=== PATIENT | male | born 1940 | race Caucasian/White ===

== ENCOUNTER 2017-03-15 17:45 | Inpatient (IN) | payer OTHER ==
[~2017-03-15] VITALS: Ht 180.3 cm; Wt 145.1 kg
--- NOTE | ~2017-03-15 | S ---
Formerly [facility] [place] [address] SURGICAL PATH RPT PROCEDURE Name: FAROOQ BLOOM Room #: 455-P [facility] IN M.R.#: [id number] Admission: 03/15/17 Date of : 44 Discharge: 03/18/17 Report #: [id number] Path Case #: [id number] PATHOLOGY REPORT COLLECTION DATE: 03/17/2017 RECEIVED DATE: 03/17/2017 SUBMITTING PHYS: Dr. Darinel Gomez OTHER PHYS: Dr. Fitz Gongora SPECIMEN(S) RECEIVED: A.Peripheral smear * * * * * * * * * * * * FINAL DIAGNOSIS: Peripheral blood with moderate normocytic normochromic anemia, severe thrombocytopenia and monocytosis. (please see comment) COMMENT: The peripheral blood shows moderate normocytic normochromic anemia with minimal anisopoikilocytosis including a few microcytic forms without schistocytes or morphologic evidence of a hemolytic process identified. These findings may suggest an anemia of chronic disease or possibly an iron deficiency anemia. An iron study to include serum iron, percent saturation, TIBC, and ferritin is suggested for a more definite classification of the etiology of the anemia. There is also severe thrombocytopenia with normal platelet morphology. Aggregates of platelets are not identified. The neutrophils show few hypolobated forms. There is also monocytosis noted. The presence of hypolobated neutrophils may be seen in a reactive process, however, the possibility of a myelodysplastic/myeloproliferative neoplasm such as a chronic myelomonocytic leukemia should be considered. Correlation with clinical findings to include presence of splenomegaly and persistent monocytosis for at least three months with all other reactive causes of monocytosis have been excluded. Other possible causes of thrombocytopenia may include failure of marrow production such as seen in marrow infiltration with tumor, infection or fibrosis, and marrow aplasia, as well as ineffective megakaryocytopoiesis such as seen in megaloblastic anemia, myelodysplasia, and alcohol suppression. Increased platelet destruction may also cause thrombocytopenia such as seen in immune thrombocytopenia (autoantibody-mediated: systemic lupus erythematosus, lymphomas, drugs, infections, idiopathic) and non-immune thrombocytopenia (DIC, TTP, and mechanical). Splenic sequestration (hypersplenism) may also cause thrombocytopenia. There are no aggregates of platelets to suggest spurious (EDTA-pseudothrombocytopenia). Please correlate clinically. [address] [address] SURGICAL PATH RPT PROCEDURE Name: FAROOQ BLOOM Room #: 455-P [facility] IN M.R.#: [id number] Admission: 03/15/17 Date of : 44 Discharge: 03/18/17 Report #: [id number] Path Case #: [id number] (LUCIE:mgr; 03/17/2017) PATHOLOGIST: Piedad Du M.D. REPORT ELECTRONICALLY SIGNED BY: Piedad Du M.D. DATE/TIME: 03/18/2017 21:15 * * * * * * * * * * * * MICROSCOPIC DESCRIPTION: CBC Data (03/17/17): WBC 6.3, RBC 3.85, hemoglobin 10.7, hematocrit 32.3, MCV 83.9, RDW 17.4%, platelet count 30,000. White blood cell count differential: 63% segs, 25% lymphs, 11% monos, 1% eos, 1% basos. Peripheral Blood: Red blood cells are normochromic with minimal anisopoikilocytosis including a few microcytic forms without schistocytes or morphologic evidence of a hemolytic process identified. Platelets are severely decreased with normal morphology. Aggregates of platelets are not identified. White blood cells are normal in number with predominance of mature segmented neutrophils. There are a few hypolobated neutrophils without circulating blasts or myeloid left shift identified. There is also monocytosis noted. The lymphocytes are mostly small and mature with few atypical reactive lymphocytes. CLINICAL HISTORY: The patient is a 76 year-old male whose peripheral smear is submitted for review at the request of Dr. Darinel Gomez. INITIAL CPT CODE(S): A; [place] Professional services performed by [employer] at [facility], [address] [place] [address]. Technical services performed by [employer] at [address] [place] [address], [address], [place] [address]. [employer] [address] [place] [address] PHONE: [phone] DIRECTOR: Dante Jackson M.D. * * * END OF REPORT * * *
--- NOTE | ~2017-03-15 | 2DMMODE ---
Formerly [facility] [address] [place] [address] 2 D/M-MODE ECHOCARDIOGRAM Name: FAROOQ BLOOM Room #: 455-P [facility] IN ..#: [id number] Admission: 03/15/17 Attend Phys: Riaz Gongora, Discharge: Date of : 44 Date of Service: 03/16/17 1234 Report #: [id number] THIS REPORT FOR: //name// APPROVED REPORT Study performed: 03/16/2017 10:33:31 EXAM: Comprehensive 2D, Doppler, and color-flow Echocardiogram Patient Location: In-Patient Room #: 455 Status: routine Other Information Study Quality: Adequate Indications Congestive Heart Failure Hx COPD, AFIB, MOBID OBESITY, SOA 2D Dimensions RVDd: 40.97 mm LVEF(%): 53.40 (>50%) IVSd: 14.61 (7-11mm) LVOT Diam: 23.20 (18-24mm) LVDd: 47.62 mm PWd: 13.84 (7-11mm) Ascending Ao: 36.64 (22-36mm) LVDs: 34.51 (25-40mm) Aortic Root: 36.13 mm Thomason's LVEF: 53.40 % Volumes Left Atrial Volume (Systole) Single Plane 4CH: 180.15 mL Single Plane 2CH: 92.49 mL LA ESV Index: 55.00 mL/m2 Aortic Valve AoV Peak Rommel.: 1.11 m/s AO Peak Gr.: 6.06 mmHg LVOT Max P.35 mmHg LVOT Max V: 0.91 m/s KARLI Vmax: 3.48 cm2 Mitral Valve MV Decel. Time: 189.35 ms MV E Max Rommel.: 0.97 m/s IVRT: 69.20 ms Pulmonary Valve Formerly [facility] [place] [address] 2 D/M-MODE ECHOCARDIOGRAM Name: FAROOQ BLOOM Room #: 455-P ADM IN M.R.#: [id number] Admission: 03/15/17 Attend Phys: Riaz Gongora, Discharge: Date of : 44 Date of Service: 03/16/17 1234 Report #: [id number] PV Peak Rommel.: 1.22 m/s PV Peak Gr.: 6.06 mmHg Tricuspid Valve TR Peak Rommel.: 2.76 m/s RAP Estimate: 5.00 mmHg TR Peak Gr.: 30.54 mmHg PA Pressure: 36.00 mmHg Left Ventricle The left ventricle is normal size. Moderate concentric left ventricular hypertrophy. The left ventricular systolic function is normal. The left ventricular ejection fraction is within the normal range. LVEF is 50-55%. This study is not technically sufficient to allow evaluation of the LV diastolic function due to atrial fibrillation. Right Ventricle Right ventricle is at the upper limits of normal. The right ventricular systolic function is normal. Atria Left atrium is severely dilated. Right atrium is severely dilated. Aortic Valve The aortic valve is normal in structure. Mild aortic regurgitation. There is no aortic valvular stenosis. Mitral Valve Mitral valve leaflets are thickened. Moderate mitral regurgitation. No evidence of mitral valve stenosis. Tricuspid Valve The tricuspid valve is normal in structure. There is trace tricuspid regurgitation. The right atrial pressure is estimated at 5 mmHg. There is mild pulmonary hypertension with an estimated PAP of 36 mmHg. Pulmonic Valve The pulmonary valve is normal in structure. Trace pulmonic regurgitation. Great Vessels The aortic root is normal in size. The ascending aorta is normal in size. IVC is normal in size and collapses >50% with inspiration. Formerly [facility] [address] [place] [address] 2 D/M-MODE ECHOCARDIOGRAM Name: FAROOQ BLOOM Room #: 455-P [facility] IN M.R.#: [id number] Admission: 03/15/17 Attend Phys: Riaz Gongora, Discharge: Date of : 44 Date of Service: 03/16/17 1234 Report #: [id number] Pericardium Cannot rual out small posterior pericardial effusion. <Conclusion> The left ventricle is normal size. LVEF is 50-55%. Left atrium is severely dilated. Right atrium is severely dilated. The aortic valve is normal in structure. Mild aortic regurgitation. Mitral valve leaflets are thickened. Mild to moderate mitral regurgitation. The tricuspid valve is normal in structure. There is trace tricuspid regurgitation. The right atrial pressure is estimated at 5 mmHg. There is mild pulmonary hypertension with an estimated PAP of 36 mmHg. The pulmonary valve is normal in structure. Trace pulmonic regurgitation. <ELECTRONICALLY SIGNED> By: Frank Montanez MD 03/16/17 1234 1234 1234 Frank Montanez MD /INF
[2017-03-15 20:22] VITALS: BP 135/75
[2017-03-15] MEDS ORDERED: METOPROLOL SUC100 MG PO (20:48)
[2017-03-15] MEDS ORDERED: CARDIZEM CD120 MG PO (20:50)
[2017-03-15] MEDS ORDERED: XARELTO20 MG PO (20:52)
[2017-03-15] MEDS ORDERED: LASIX 40 MG TAB40 M2 PO (20:54)
[2017-03-15] MEDS ORDERED: KLOR-CON 10 ER10 MEQ PO (20:56)
[2017-03-15] MEDS ORDERED: OMEPRAZOLE 20 M20 M1 PO (20:57)
[2017-03-15 20:58] LABS: ALBUMIN 3.4 g/dL (3.4-5.0); CALCIUM 8.5 mg/dL (8.5-10.1); CREATININE 1.8 mg/dL (0.7-1.3); MAGNESIUM 1.6 mg/dL (1.8-2.4); POTASSIUM 3.7 mmol/L (3.5-5.1); TOTAL BILIRUBIN 1.5 mg/dL (<0.1-1.0); TOTAL PROTEIN 8.2 g/dL (6.4-8.2); TROPONIN-I < 0.04 ng/mL (<0.04-0.07)
[2017-03-15] MEDS ORDERED: LEVOTHYROXIN0.088 MG PO (20:59)
[2017-03-15 21:01] LABS: INR 1.2; PROTIME 11.8 Seconds (9.3-11.4)
[2017-03-15] MEDS ORDERED: ULTRACET TABLET1 TAB PO (21:05)
[2017-03-15 21:11] LABS: ABG SAMPLE TYPE ARTERIAL; BE(vivo) 0.6 mmol/L (-2 to +3); HCO3 24.3 mmol/L (22.0-26.0); O2(CT) 16.2 mL/dL (15.0-23.0); O2Hb 93.4 % (92.0-98.0); PCO2 35.8 mmHg (35.0-45.0); PO2 73.6 mmHg (80.0-100.0); STICK SITE L.RADIAL; pH 7.449 (7.360-7.450); sO2 95.5 % (92.0-98.0); tCO2 25.4 mmol/L (24.0-30.0)
[2017-03-15] MEDS ORDERED: PROAIR HFA8.5 GM PO (21:11)
[2017-03-16 00:06] VITALS: BP 105/38
[2017-03-16 03:28] VITALS: BP 138/58
[2017-03-16 07:15] LABS: EOSINOPHILS 0.2 % (0.0-3.0); HEMOGLOBIN 11.3 gm/dL (14.0-18.0)
[2017-03-16 07:18] LABS: ABSOLUTE NEUTROPHILS 6.5 thou/uL (1.4-8.2); BASOPHILS 0.4 % (0.0-2.0); HEMATOCRIT 33.9 % (42.0-52.0); LYMPHOCYTES 16.9 % (24.0-44.0); MCHC 33.3 g/dL (28.0-37.0); MCV 83.9 fL (80.0-100.0); MONOCYTES 9.4 % (1.0-8.0); POLYS 73.1 % (36.0-66.0); RBC 4.04 mil/uL (4.50-6.00); RDW 17.3 % (10.5-14.5); WBC 8.9 thou/uL (4.0-11.0)
[2017-03-16 07:26] LABS: MANUAL DIFF NO
[2017-03-16 07:28] LABS: CALCIUM 8.5 mg/dL (8.5-10.1); CREATININE 1.5 mg/dL (0.7-1.3); POTASSIUM 3.6 mmol/L (3.5-5.1)
[2017-03-16 07:39] VITALS: BP 134/63
[2017-03-16 07:53] LABS: PLATELET COUNT 8 thou/uL (150-400)
[2017-03-16 07:54] LABS: ANISOCYTOSIS 1+; POLYCHROMASIA OCCASIONAL
[2017-03-16 11:29] VITALS: BP 122/85
[2017-03-16 15:26] VITALS: BP 111/57; BP 127/52
[2017-03-16 19:43] VITALS: BP 123/76
[2017-03-16 19:44] LABS: % SATURATION 9 % (20-39); IRON 21 ug/dL (65-175); TIBC 241 ug/dL (250-450); UIBC 220 ug/dL
[2017-03-16 21:47] LABS: RDW 17.3 % (10.5-14.5)
[2017-03-16 21:48] LABS: HEMATOCRIT 32.3 % (42.0-52.0); HEMOGLOBIN 10.7 gm/dL (14.0-18.0); MCH 27.7 pg (26.0-34.0); MCHC 33.2 g/dL (28.0-37.0); MCV 83.6 fL (80.0-100.0); RBC 3.87 mil/uL (4.50-6.00); WBC 6.7 thou/uL (4.0-11.0)
[2017-03-17 05:20] VITALS: BP 120/65
[2017-03-17 06:29] LABS: BASOPHILS 0.4 % (0.0-2.0); HEMATOCRIT 32.3 % (42.0-52.0); MCHC 33.3 g/dL (28.0-37.0)
[2017-03-17 06:31] LABS: EOSINOPHILS 0.5 % (0.0-3.0); HEMOGLOBIN 10.7 gm/dL (14.0-18.0); MCH 27.9 pg (26.0-34.0); MCV 83.9 fL (80.0-100.0); MONOCYTES 11.4 % (1.0-8.0); PLATELET COUNT 30 thou/uL (150-400); POLYS 62.7 % (36.0-66.0); RBC 3.85 mil/uL (4.50-6.00); RDW 17.4 % (10.5-14.5); WBC 6.3 thou/uL (4.0-11.0)
[2017-03-17 06:33] LABS: MANUAL DIFF NO
[2017-03-17 06:45] LABS: CALCIUM 8.4 mg/dL (8.5-10.1); CREATININE 1.4 mg/dL (0.7-1.3); POTASSIUM 3.5 mmol/L (3.5-5.1)
[2017-03-17 07:17] VITALS: BP 136/71
[2017-03-17 07:57] LABS: ABG SAMPLE TYPE ARTERIAL; BE(vivo) 3.4 mmol/L (-2 to +3); HCO3 26.5 mmol/L (22.0-26.0); LACTATE 1.44 mmol/L (0.5-2.0); O2(CT) 15.1 mL/dL (15.0-23.0); O2Hb 91.4 % (92.0-98.0); PCO2 34.7 mmHg (35.0-45.0); PO2 64.8 mmHg (80.0-100.0); sO2 94.4 % (92.0-98.0); tCO2 27.5 mmol/L (24.0-30.0)
[2017-03-17 07:58] LABS: STICK SITE L.RADIAL
[2017-03-17 12:09] VITALS: BP 138/91
[2017-03-17 13:08] LABS: IgA 176 mg/dL (61-437); IgG 1288 mg/dL (700-1600); IgM 200 mg/dL (15-143)
[2017-03-17 16:18] VITALS: BP 137/83
[2017-03-17 19:15] VITALS: BP 125/80
[2017-03-18 04:04] VITALS: BP 150/98
[2017-03-18 05:42] LABS: ABSOLUTE NEUTROPHILS 6.5 thou/uL (1.4-8.2); HEMOGLOBIN 11.4 gm/dL (14.0-18.0); LYMPHOCYTES 14.1 % (24.0-44.0); MCH 27.9 pg (26.0-34.0); MCHC 33.6 g/dL (28.0-37.0); MCV 83.2 fL (80.0-100.0); MONOCYTES 3.7 % (1.0-8.0); PLATELET COUNT 67 thou/uL (150-400); POLYS 82.2 % (36.0-66.0); RBC 4.09 mil/uL (4.50-6.00); RDW 17.6 % (10.5-14.5); WBC 7.9 thou/uL (4.0-11.0)
[2017-03-18 05:46] LABS: MANUAL DIFF NO
[2017-03-18 05:59] LABS: CALCIUM 8.6 mg/dL (8.5-10.1); CREATININE 1.6 mg/dL (0.7-1.3); POTASSIUM 4.1 mmol/L (3.5-5.1)
[2017-03-18 07:58] VITALS: BP 139/78
[2017-03-18 11:35] VITALS: BP 126/86
[2017-03-18 15:29] VITALS: BP 147/73
[2017-03-18 16:08] VITALS: BP 147/73
[2017-03-18 16:14] VITALS: BP 147/73
== END 2017-03-18 16:55 | disposition home health service (06) | DRG 291 ==
LOC: 4W 17:45
PROVIDERS: Family Medicine; Internal Medicine Geriatric Medicine; Internal Medicine Hematology & Oncology; Internal Medicine Pulmonary Disease; Nurse Practitioner Family
PROC: 30233R1 Transfusion of Nonautologous Platelets into Peripheral Vein, Percutaneous Approach (ICD-10-PCS; principal; 2017-03-16)
DX: I13.0 Hypertensive heart and chronic kidney disease with heart failure and stage 1 through stage 4 chronic kidney disease, or unspecified chronic kidney disease (principal); I50.33 Acute on chronic diastolic (congestive) heart failure; J96.01 Acute respiratory failure with hypoxia; L03.119 Cellulitis of unspecified part of limb; J44.1 Chronic obstructive pulmonary disease with (acute) exacerbation; E87.3 Alkalosis; Z68.41 Body mass index [BMI] 40.0-44.9, adult; I87.2 Venous insufficiency (chronic) (peripheral); D69.6 Thrombocytopenia, unspecified; E03.9 Hypothyroidism, unspecified; K21.9 Gastro-esophageal reflux disease without esophagitis; E66.01 Morbid (severe) obesity due to excess calories; Z60.2 Problems related to living alone; I48.2 Chronic atrial fibrillation; D64.9 Anemia, unspecified; D50.8 Other iron deficiency anemias; S90.921A Unspecified superficial injury of right foot, initial encounter; N18.9 Chronic kidney disease, unspecified; D75.9 Disease of blood and blood-forming organs, unspecified; M25.871 Other specified joint disorders, right ankle and foot; I87.009 Postthrombotic syndrome without complications of unspecified extremity; Z90.49 Acquired absence of other specified parts of digestive tract; Z95.5 Presence of coronary angioplasty implant and graft; Z79.01 Long term (current) use of anticoagulants; Z79.899 Other long term (current) drug therapy; Z87.891 Personal history of nicotine dependence; Z86.73 Personal history of transient ischemic attack (TIA), and cerebral infarction without residual deficits
CPT/HCPCS: 10045

== ENCOUNTER 2020-03-14 14:42 | Inpatient (IN) | payer OTHER ==
[~2020-03-14] VITALS: Ht 180.3 cm; Wt 179.3 kg
[~2020-03-14 14:42] MED LIST: CARDIZEM CD120 MG PO; KLOR-CON 10 ER10 MEQ PO; LASIX 40 MG TAB40 M2 PO; LEVOTHYROXIN0.088 MG PO; METOPROLOL SUC100 MG PO; OMEPRAZOLE 20 M20 M1 PO; PROAIR HFA8.5 GM PO; ULTRACET TABLET1 TAB PO; XARELTO20 MG PO
--- NOTE | 2020-03-14 16:06 | NUR ---
REC REPORT FROM NOVEMBER, RN AT [facility], REC PT FROM AMBULANCE. PT IS A&0X4, PT AMB W/WALKER, IN PAIN DUE BLE CELLULITIS, BLE WRAPPED FOR LYMPHADEMA, WEEPING PER REPORT. WILL TAKE PHOTOGRAPH WHEN ABLE TO. WEARS 02 AT HOME 2-4L NEEDED. ON 2L HERE. SEE SEPARATE INTERVENTION FOR ASSESSMENT. CARDIAC MONITORED.
[2020-03-14] MEDS ORDERED: LORCET 5-325 M1 EACH PO (16:23)
[2020-03-14 17:10] LABS: HEMATOCRIT 32.9 % (42.0-52.0); HEMOGLOBIN 10.6 gm/dL (14.0-18.0); MCH 27.6 pg (26.0-34.0); MCHC 32.1 g/dL (28.0-37.0); MCV 85.9 fL (80.0-100.0); RBC 3.83 mil/uL (4.50-6.00); RDW 18.3 % (10.5-14.5); WBC 17.6 thou/uL (4.0-11.0)
[2020-03-14 17:17] LABS: CALCIUM 8.4 mg/dL (8.5-10.1); CREATININE 8.3 mg/dL (0.7-1.3); POTASSIUM 4.1 mmol/L (3.5-5.1)
[2020-03-14 17:22] LABS: PHOSPHORUS 8.3 mg/dL (2.5-4.9)
--- NOTE | 2020-03-14 17:50 | NUR ---
NURSING: CALL DR. JOSIAH RAZO WITH RESULTS TONIGHT ONCE DIAGNOSTICS/ORDERS COMPLETE
[2020-03-14 20:20] VITALS: BP 92/52
[2020-03-15 00:49] VITALS: BP 88/44
--- NOTE | 2020-03-15 03:31 | NUR ---
ASSUMED PT CARE AT 1900. PT IS ALERT AND ORIENTED. NO SIGN OF DISTRESS NOTED IN PT. PT IS STABLE. BLE SWELLING AND CELLULITIS NOTED. PT VERBALIZES PAIN. PAIN MED ADMINISTERED TO PT. DR RAZO NOTIFIED ON RESULT OF RENAL ULTRASOUND AND LAB RESULTS. PT IS STABLE. FALL PRECAUTION IN PLACE. ASSESSMENT COMPLETED AND DOCUMENTED. SCHEDULED MEDS ADMINISTERED TO PT. CONTINUE TO MONITOR PT. NO FURTHER NEEDS AT THIS TIME
[2020-03-15 05:45] LABS: HEMATOCRIT 30.4 % (42.0-52.0); MCH 28.2 pg (26.0-34.0); MCHC 32.8 g/dL (28.0-37.0); RBC 3.54 mil/uL (4.50-6.00); RDW 18.2 % (10.5-14.5); WBC 14.3 thou/uL (4.0-11.0)
[2020-03-15 06:26] LABS: ALBUMIN 2.7 g/dL (3.4-5.0); CALCIUM 7.8 mg/dL (8.5-10.1); PHOSPHORUS 8.7 mg/dL (2.5-4.9); POTASSIUM 3.8 mmol/L (3.5-5.1)
[2020-03-15 07:29] VITALS: BP 79/49
--- NOTE | 2020-03-15 08:35 | NUR ---
ASSUMED CARE OF PT AT SHIFT CHANGE, STATES HE ONLY GOT AN HOUR OR TWO OF SLEEP. WILL TAKE WOUND PICS TODAY, B/P'S LOW THIS A.M. AND AFIB, CHRONIC, LOW TEENS, NOW HAS IVF RUNNING YET ARM NOT WRAPPED IN A MANNER TO KEEP IVF RUNNING . WILL WRAP WITH KERLIX AND COBAN. PT ASKING FOR ALL HOME MEDS. HAD COMM W/PHYSICIAN AFTER DISCHARGE ON MED REC BEING COMPLETED. SEE SEPARATE INTERVENTIONS FOR ASSESSMENTS. ENCOURAGED PT TO USE CALL LIGHT FOR ANY NEEDS
--- NOTE | 2020-03-15 10:48 | HC ---
[place] [address] CONSULTATION Name: FAROOQ BLOOM Room #: 215-P ADM IN M.R.#: [id number] Admission: 03/14/20 Attend Phys: Kenny Pham MD Discharge: Date of : 44 Report #: [id number] THIS REPORT FOR: cc: [facility] - Family physician unknown [facility] - Family physician unknown Simone Cristina MD ~ CC: [facility] unknown Kenny Pham DATE OF SERVICE: 03/15/2020 INFECTIOUS DISEASE CONSULTATION ATTENDING PHYSICIAN: Dr. Pham. REASON FOR EVALUATION: Bilateral lower extremity inflammatory eruption, likely a component of skin and soft tissue infection more pronounced on the right in a patient with longstanding venous stasis insufficiency and lymphedema. HISTORY OF PRESENT ILLNESS: Chart reviewed, patient examined. This is a 79-year-old with fairly extensive medical history who apparently has been on hospice; however, noted perhaps in the last 2 or 3 days prior to his admission increasing pain and discomfort associated with lower extremities, in particularly the right. He has ongoing weeping and he is generally swollen most of the time. It is not clear that he had any fevers or chills. He states his appetite has been diminished, although not related to nausea more, just loss of the appetite. Had been initiated on therapy as an outpatient with Augmentin without benefit. On evaluation, he was found to have elevated white count 17.6. He was empirically started on vancomycin, adjusted for his renal insufficiency. He is maintained on supplemental oxygen at 3 liters normally, states he is on 2 liters at home. ALLERGIES: None known. MEDICATIONS: As noted above, vancomycin, diltiazem CD, levothyroxine. PAST MEDICAL HISTORY: As noted above for COPD, O2 requiring, history of atrial fibrillation, on chronic anticoagulation, has cardiomyopathy, history of congestive heart failure, lower extremity venous stasis insufficiency with dermatitis. He has wounds as well. He is morbidly obese. SOCIAL HISTORY: Former smoker. No ethanol. No illicit drug use. FAMILY HISTORY: Noncontributory. REVIEW OF SYSTEMS: Otherwise unremarkable 10-point review of systems. [address] [place] [address] CONSULTATION Name: FAROOQ BLOOM Room #: 215-P ADM IN M.R.#: [id number] Admission: 03/14/20 Attend Phys: Kenny Pham MD Discharge: Date of : 44 Report #: [id number] PHYSICAL EXAMINATION: GENERAL: Chronically ill appearing, suspect undernourished, although he is obese. Speech is somewhat difficult to understand, although he appears to be tracking. He is afebrile. VITAL SIGNS: Temperature 98.1, pulse 108, respirations 21, blood pressure is 88/42. SKIN: Warm, dry. HEENT AND NECK: Has got a thick neck, is supple. Normocephalic. Extraocular muscles intact. LUNGS: Diminished breath sounds overall. There are some crackles at the bases anteriorly. HEART: Regular with some ectopy. ABDOMEN: Obese. There are no overt peritoneal signs. Generally firm. EXTREMITIES: Bilateral lower extremities have marked edema with moderate inflammation. There is evidence of weeping and drainage. It is not exquisitely tender to touch, involves most of the limb below the knee. GENITOURINARY AND RECTAL: Deferred. LABORATORY DATA: White count initially 17.6, repeat this morning was 14.3; H and H 10.0 and 30.4; platelets of 209. Electrolytes: Sodium 127, potassium 3.8, chloride 90, bicarbonate of 17, anion gap of 20, BUN and creatinine 140 and 9.0, glucose of 97. Albumin of 2.7. Estimated GFR of 6. Renal ultrasound, limited, although no overt ____. ASSESSMENT: Bilateral lower extremity inflammatory eruption. Certainly, it appears to be multifactorial given the recent change in the symptomology and appearance. I suspect at least on the right side there is skin and soft tissue infection with cellulitis. Vancomycin should give us reasonable coverage, Staph and strep in particular, dose to be based on his renal function. Vancomycin should be on board for the next 24 hours. We will see how he does. He will need elevation and compression as allowed. <ELECTRONICALLY SIGNED> By: Simone Cristina MD 03/15/20 1048 [id number] Simone Cristina MD /nt
[2020-03-15 11:21] VITALS: BP 89/53
[2020-03-15 14:42] LABS: URINE BILIRUBIN NEGATIVE (Negative); URINE BLOOD TRACE (Negative); URINE CLARITY CLEAR; URINE COLOR YELLOW; URINE GLUCOSE-RANDOM* NEGATIVE (Negative); URINE KETONES NEGATIVE (Negative); URINE LEUKOCYTES NEGATIVE (Negative); URINE NITRITE NEGATIVE (Negative); URINE PROTEIN (DIPSTICK) TRACE (Negative); URINE SPECIFIC GRAVITY 1.025 (1.005-1.035); URINE UROBILINOGEN 0.2 E.U./dl (0.2-1.0)
[2020-03-15 16:34] VITALS: BP 91/41
[2020-03-15 18:49] VITALS: BP 87/57
[2020-03-16 05:25] LABS: ALBUMIN 2.4 g/dL (3.4-5.0); CALCIUM 7.3 mg/dL (8.5-10.1); CREATININE 8.7 mg/dL (0.7-1.3); POTASSIUM 4.2 mmol/L (3.5-5.1); TOTAL BILIRUBIN 0.4 mg/dL (0.2-1.0); TOTAL PROTEIN 7.4 g/dL (6.4-8.2)
[2020-03-16 05:30] VITALS: BP 74/33
[2020-03-16 06:07] LABS: HEMATOCRIT 29.6 % (42.0-52.0); HEMOGLOBIN 9.7 gm/dL (14.0-18.0); MCHC 32.7 g/dL (28.0-37.0); MCV 85.5 fL (80.0-100.0); PLATELET COUNT 233 thou/uL (150-400); RBC 3.46 mil/uL (4.50-6.00); RDW 18.7 % (10.5-14.5); WBC 16.8 thou/uL (4.0-11.0)
--- NOTE | 2020-03-16 06:44 | NUR ---
PATIENTS CARES WERE ASSUMED AT SHIFT CHANGE. PATIENT WAS ASSESED AND MEDS ERE PASSED PER ORDERS. PATIENT DOES C/O CHRONIC PAIN. PATIENT NOT ENGAGING OR VERBAL AT THIS TIME. PATIENT SPENT THIS SHIFT MOANING. A DOSE OF PAIN MEDICATION WAS GIVEN FOR PAIN RTED 05/08 HOWEVER ON REASSESSMENT NOT MUCH CHANGE. ROUNDS DONE HOURLY. THE BED IS IN A LOW AND LOCKED POSITION
[2020-03-16 08:00] VITALS: BP 77/45
[2020-03-16 10:12] LABS: ABSOLUTE NEUTROPHILS 15.1 thou/uL (1.4-8.2); METAMYELOCYTES 1 %
[2020-03-16 10:13] LABS: ANISOCYTOSIS 2+; MICROCYTES 1+
[2020-03-16 12:00] VITALS: BP 82/42
--- NOTE | 2020-03-16 14:20 | HC ---
[facility] [place] [address] CONSULTATION Name: FAROOQ BLOOM Room #: 215-P ADM IN M.R.#: [id number] Admission: 03/14/20 Attend Phys: Kenny Pham MD Discharge: Date of : 44 Report #: [id number] THIS REPORT FOR: cc: FAM - Family physician unknown FAM - Family physician unknown John Johnson MD ~ CC: [facility] unknown Kenny Pham DATE OF SERVICE: 03/14/2020 NEPHROLOGY CONSULTATION REASON FOR CONSULTATION: Acute renal failure. HISTORY OF PRESENT ILLNESS: This is a 79-year-old male who lives alone and has some hospice services. He presented to the [facility] Emergency Room earlier this morning. He was found to have changes of renal failure and those labs will be noted below. He was transferred here to [facility] for additional care. The patient is not a very good historian. He knows that he has some underlying COPD. He has a history of coronary artery disease with prior ME and coronary artery bypass graft surgery 14 years ago. He has chronic lymphedema of both lower extremities. He states that his edema has been worse over the past week or 2 in spite of his many medications. He also had erythema of the legs and some drainage. He is unaware of fevers. Because of the pain he presented to the [facility] Emergency Room earlier today. He was mildly hypotensive at that location. Blood pressure initially was recorded as 92/51 with a heart rate of 102. He was given some IV fluids, but I am not quite able to tell from what they sent how much volume he received. Labs were drawn and his creatinine was 8.49, sodium 128, bicarb 18. He was transferred here for additional care for his renal failure. In addition, he was afebrile at that time with a temperature of 36.6 degrees centigrade. His white count was elevated at 20.19, hemoglobin is 10.8, platelets 222,000. Differential on the white count showed 86% neutrophils, 9% lymphs, 3% monocytes. The patient states his urine output has been going down over the past few days. He claims he has no trouble passing urine. He has no sensation of retained urine. He states he spends most of his time in a chair with his legs in a dependent position. Apparently he does get up to make some of his meals and has been doing that. He is unaware of what his intake has been. He claims he is taking his medications. He is unaware of fevers, chills or sweats. When I asked about being on hospice, but coming to the Emergency Room and then transferring hospital he is not really able to answer the questions asked about those specifics. PAST MEDICAL HISTORY: Coronary artery disease with prior bypass and an ME [address] [address] CONSULTATION Name: FAROOQ BLOOM Room #: 215-P ADM IN M.R.#: [id number] Admission: 03/14/20 Attend Phys: Kenny Pham MD Discharge: Date of : 42 Report #: [id number] years ago, which would put that in about 2005. He has longstanding hypertension. He has his chronic lymphedema. He has hypothyroidism and is on replacement for that. He is morbidly obese. He has chronic atrial fibrillation and has been on Xarelto. He reports no recent bleeding. I would note that he also had a previous episode of acute kidney injury and was admitted earlier this year to [facility] where he was cared for by a couple of my practice partners. He underwent some acute dialysis because of hyperkalemia and metabolic acidosis. He really does not remember any of that. MEDICATIONS: On admission include lisinopril 20 mg daily, Cartia 300 mg daily, metoprolol 50 mg twice daily, torsemide 40 mg twice daily, spironolactone 25 mg once daily, potassium 10 mEq twice daily, Augmentin as an antibiotic, folic acid 1 mg daily, hydrocodone p.r.n., levothyroxine 0.088 mg daily, omeprazole 20 mg daily, Xarelto 20 mg daily. ALLERGIES: No known medical allergies. FAMILY HISTORY: Noncontributory. SOCIAL HISTORY: The patient lives alone. He says the hospice nurses come in couple of times a week. Otherwise, he struggles to get his own meals. He is poorly ambulatory. He does sleep in a bed he states more often than not, although we will also sleep in his chair with his legs down. He has chronic dyspnea with any exertion. Denies chest pain at this time. Unaware of cough or fever. Appetite has been diminished. Urine output is a bit down. He has had increasing pain in his lower extremities as noted above. PHYSICAL EXAMINATION: GENERAL: Chronically ill-appearing male. He is awake and responsive, although somewhat of a poor historian. I saw him just after arriving and we were waiting for a blood pressure There is one on the board listed as 105/52, heart rate is 108 and irregular. HEENT: Shows pupils are equal and reactive. Sclerae nonicteric. Oral mucosa is dry. NECK: Veins are not distended, but his neck is very large. Neck is supple. CHEST: Shows a few basilar rales posteriorly, faint wheeze a couple of other areas. No rhonchi. He is moving air actually fairly well. HEART: Has an irregularly irregular tachycardia. ABDOMEN: Obese, protuberant. Bowel sounds are present. Impossible to palpate any organomegaly or masses. Impossible to tell if the bladder is enlarged. EXTREMITIES: Show no upper extremity edema in fact if looking just at the upper extremities you would say he was a bit on the hypovolemic side. Both lower extremities are massively edematous. The left leg is wrapped, that appears to be 2 or 3+ edematous. The right leg is 4+ edematous with a segura red erythema [facility] [address] [place] [address] CONSULTATION Name: FAROOQ BLOOM Room #: 215-P ADM IN .R.#: [id number] Admission: 03/14/20 Attend Phys: Kenny Pham MD Discharge: Date of : 42 Report #: [id number] and several areas of skin breakdown, so obviously very tender. LABORATORY DATA: From [facility], white count 20.19, hemoglobin 10.8, hematocrit 32.6, MCV of 83.4, platelets 222,000. Differential is as noted above. Sodium 128, potassium 4.3, chloride 92, bicarb 18, BUN 125, creatinine 8.49, calcium 8.7, AST 34, ALT 19, alkaline phosphatase 85, total protein 8.9, albumin 3.2. ASSESSMENT: 1. Acute kidney injury on top of what is probably chronic kidney disease. This is not his first episode. As previously stated, he had another episode. That actually required acute dialysis while at [facility]. At this point, I do not have the records to verify what his creatinine level got down to. The patient does not remember any mention of what his kidney function is at his best. He was hypotensive at [facility]. He got some IV fluids. Blood pressure is better now. He has a mixed picture on exam of massive lymphedema, but the torso and arms would suggest he might well be somewhat volume deplete. At this point, we will recheck labs and see if there are any different from what they were previously, I think it would be reasonable to give him a small amount of fluid with the understanding that we were certainly not trying to make his legs any worse. Nevertheless, with his tachycardia, very high BUN, particularly in relation to his creatinine, and his physical exam, I think he can tolerate a bit of fluid. We also need to get an urgent renal ultrasound to make sure he is not obstructed. We will also monitor bladder function and make sure he is emptying adequately. I cannot find that he received any nephrotoxic exposures. His white count is up, but he does not appear floridly septic, but will certainly keep an eye out for changes that would suggest that he was. 2. Presumed chronic kidney disease, particularly with multiple episodes of acute kidney injury. 3. Erythema of the lower extremities with lymphedema and cellulitis. He was given broad spectrum antibiotics at [facility]. I hope they annalee cultures and be kept on some broad spectrum antibiotics and get local care. His left leg looks better than the right, but it is wrapped and I think it would be reasonable to wrap the right leg too. If he shows any signs of worsening infection or sepsis, he will probably need transfer to the Intensive Care Unit. 4. Morbid obesity. 5. Chronic obstructive pulmonary disease. Oxygenating currently okay at this time. I asked if he had obstructive sleep apnea and he said he was unaware, but I would be surprised if did not, which would only complicate the aforementioned measures. 6. Coronary artery disease with prior myocardial infarction. No current symptoms related to that. PLAN: 1. Very difficult situation. We will check some urine studies including a UA and a fractional excretion of sodium. [facility] [address] [place] [address] CONSULTATION Name: FAROOQ BLOOM Room #: 215-P ADM IN [place].#: [id number] Admission: 03/14/20 Attend Phys: Kenny Pham MD Discharge: Date of : 42 Report #: [id number] 2. Renal ultrasound tonight. 3. Recheck labs. If his creatinine is down at all and his blood pressure is still on the low side, I will give him some additional IV fluids judiciously. We will monitor urine output closely. At this point, he does not need acute dialysis, but will certainly monitor for any changes that would change our mind on that. We will stop his lisinopril, his torsemide and spironolactone at this time. We may need to reinstitute some of these down the line. I asked the patient if he would want to do dialysis again and he does not remember his initial times very well. It sounds like he probably would consider it if need be. Continue to monitor the need for that going forward. We will also want some clarification of what his hospice status is. He says he wants everything done at this point, regardless. We will follow along in the care of this chronically and severely ill patient. <ELECTRONICALLY SIGNED> By: John Johnson MD 03/16/20 1420 [id number] John Johnson MD /nt
[2020-03-16 16:00] VITALS: BP 87/69
[2020-03-16 19:00] VITALS: BP 94/40
[2020-03-16 19:11] VITALS: BP 74/40
--- NOTE | 2020-03-16 19:28 | NUR ---
ASSUMED CARE OF PT AT SHIFT CHANGE. ASSESSMENTS CHARTED. MEDS GIVEN PER OCT. PT A&OX3, C/O PAIN TREATED WITH PO MEDS WITH PARTIAL RELIEF. PT MOANED A LOT DURING THE SHIFT, AND SLEPT OFF AND ON ALL DAY. FRIEND/DPOA VISITED IN AFTERNOON. WILL CONTINUE TO MONITOR.
[2020-03-17 04:35] VITALS: BP 110/86
[2020-03-17 05:09] VITALS: BP 98/75
--- NOTE | 2020-03-17 05:16 | NUR ---
ASSUMED CARE OF PATIENT AT 1900. PATIENT FREQUENTLY REMOVED OXYGEN THROUGH NIGHT. OXYGEN SATURATIONS DROPPED INTO THE LOW 80s on RA. EDUCATED THE PATIENT ABOUT NEED FOR OXYGEN HOWEVER PATIENT CONTINUED TO BE NON-COMPLIANT. AT 0200 NOTED AFIB ON CARDIAC STRIP WITH HEART RATE FLUCTUATING BETWEEN 100s to UPPER 120s. NOTIFIED NURSE PRACTITIONER ON DUTY. DUE TO LOW BLOOD PRESSURES DENTAL FLOSS PACKER ADVISED TO CONTINUE MONITORING PATIENT.
[2020-03-17 05:27] LABS: HEMATOCRIT 29.4 % (42.0-52.0); HEMOGLOBIN 9.5 gm/dL (14.0-18.0); MCH 27.8 pg (26.0-34.0); MCHC 32.3 g/dL (28.0-37.0); MCV 86.2 fL (80.0-100.0); RBC 3.41 mil/uL (4.50-6.00); RDW 19.1 % (10.5-14.5); WBC 12.8 thou/uL (4.0-11.0)
[2020-03-17 05:33] LABS: ALBUMIN 2.4 g/dL (3.4-5.0); CALCIUM 7.5 mg/dL (8.5-10.1); CREATININE 8.3 mg/dL (0.7-1.3); PHOSPHORUS 9.7 mg/dL (2.5-4.9); POTASSIUM 4.5 mmol/L (3.5-5.1)
[2020-03-17 07:30] VITALS: BP 96/72
--- NOTE | 2020-03-17 10:15 | NUR ---
WOUND CARE CONSULT; ASSESSED BLE EDEMA, CELLULITIS, LEGS WEEPING, R UPPER THIGH AND BUTTOCK WOUND, BLEEDING NOTED, DUE TO SEVERITY OF BLE EDEMA NEED FOR COMPRESSION WILL CONSULT WOUND DR CLIFFORD/FAYE, SHOE LINING FITTER LACIE PRESENT W/ ASSESSMENT, INCONT LOOSE DARK BROWN STOOL, CLEANSED, WILL ORDER LOW AIR LOSS PUMP TO BED, MAY NEED BARIATRIC BED RECOMMENDATIONS; CONSULT WOUND DR CLIFFORD/FAYE SHOE LINING FITTER SERG
[2020-03-17 11:45] VITALS: BP 155/126
[2020-03-17 16:30] VITALS: BP 134/97
--- NOTE | 2020-03-17 17:16 | NUR ---
Attempted to meet with patient who grunts and did not open eyes. Sp with Steve Wood patient POA. Steve reports patient in skilled rehab from Aug-January at [facility]. Patient then dc home with [facility]. Steve reports patient seems to get worse and wants to be hospitalized. He reports they revoked hospice to come to hospital. He makes his own decisions and wanted to be a Full Code. Steve reports he has 9 lives. He was very ill at [facility] called him and next day alert and talkative. steve aware patient not a dialysis candidate he spoke with nephrology. He reports if not improving he does not want him in facility with hospice he would be interested in hospice house [facility]. 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 Patient had 3 sisters only close with one who . Patient approached Steve approx a year ago and asked if he would be his POA. Steve reports he consulted with an business attorney and patients POA. He reports [place] or [facility] likely has POA paperwork on file. Steve out of town cannot visit until weekend. He is avail by phone.
--- NOTE | 2020-03-17 19:37 | NUR ---
ASSUMED CARE OF PT AT SHIFT CHANGE. ASSESSMENTS CHARTED. MEDS GIVEN PER OCT. PT LETHARGIC, WILL OPENS EYES WHEN TOLD, AND ANSWER QUESTIONS REGARDING PAIN. MOANED AND SLEPT MOST OF SHIFT. WOUND CARE CONSULTED. DPOA CONTACTED REGARDING FUTURE PLAN. WILL CONTINUE TO MONITOR.
[2020-03-17 22:35] VITALS: BP 69/44
[2020-03-18 03:55] VITALS: BP 72/19
--- NOTE | 2020-03-18 05:30 | NUR ---
ASSUMED CARE OF PATIENT AT 1900. ATTEMPTED Q2H TURNS WITH PATIENT DUE TO SKIN BREAKDOWN HOWEVER MULTIPLE TIMES PATIENT YELLED AND PUSHED BACK AGAINST STAFF WHILE TRYING TO TURN PATIENT. APPLIED EXTERNAL MALE CATHETER TO HELP KEEP SKIN DRY. WAS ABLE TO PERFORM HE-CARE AND NOTICED SKIN BREAKDOWN ON SCROTUM WELL. APPLIED BARRIER CREAM. PATIENT ALSO CONTINUES TO REMOVE OXYGEN THROUGH NOC. PATIENT SHAKES HEAD WHEN TRYING TO REAPPLY OXYGEN WHILE AWAKE. PATIENT IS NOT PROGRESSING TOWARDS GOALS.
[2020-03-18 08:10] VITALS: BP 153/124
--- NOTE | 2020-03-18 08:19 | NUR ---
ASSUMED CARE OF PT AT SHIFT CHANGE, REPORTS OF BP DROPPING, RESPIRATIONS INCREASING, 02 SATS NEGLIBLE D/T PT IMPULSIVELY PULLING OFF, NOT RESPONDING. WHEN PT WAS ADMITTED HE WAS JUST OFF HOSPICE AND A&0X4, DOES MOAN CONSTANTLY HIS WAY OF DEALING WITH BLE PAIN, PER HIS STATEMENT A FEW DAYS AGO. THIS A.M. 02 WAS IN HIS BED LINENS, DIDN'T SWALLOW, JUST BLEW BUBBLES, YET OPENED EYES, TRACKED, AND SHOOK HIS HEAD AFFFIRMATIVE OR NOT TO QUESTIONS ASKED. WILL CONTINUE TO MONITOR AND ATTEMPT TO FEED IF THERE'S NO RISK FOR ASPIRATION. SHAKES HEAD YES TO PAIN. SEE SEPARATE INTERVENTIONS FOR ASSESSMENTS
[2020-03-18 09:15] LABS: ALBUMIN 2.4 g/dL (3.4-5.0); CALCIUM 7.5 mg/dL (8.5-10.1); PHOSPHORUS 12.5 mg/dL (2.5-4.9)
[2020-03-18 09:24] LABS: CREATININE 10.2 mg/dL (0.7-1.3)
--- NOTE | 2020-03-18 10:39 | NUR ---
Assess due to high BMI 48, extreme class obesity and with BLE edema, venous ulcer, and right upper thigh and buttock wound; wound care has assessed. CRF however pt not dialysis candidate per renal and there is consideration of transition back to hospice care. RN notes reviewed and pt was not swallowing liquids. Will follow plan of care and check on again in next 2 days
[2020-03-18 16:02] VITALS: BP 76/54
--- NOTE | 2020-03-18 18:12 | NUR ---
CHANGE IN CODE STATUS TO DNR, PER NAIMA GAMBOA WITH [facility] WITNESS. DR FREEMAN CONTACTED AND ACKNOWLEDGED. DR. FREEMAN ASKED ME TO CHANGE CODE STATUS, NAIMA WILL CALL BACK TYRON TO TALK W/PATIENT
[2020-03-18 20:18] VITALS: BP 128/106
--- NOTE | 2020-03-19 03:56 | NUR ---
ASSESSED AT START OF SHIFT PT. RESTING IN BED. SOMETIMES TAKES OFF O2 REAPPLIED AND TAPE DOWN PROPERLY. IV INTACT AND FLUIDS INFUSING. PT MOANS WHEN TOUCHED IV PAIN MEDS GIVEN. FALL PREC IN PLACE AND CALL LIGHT IN REACH WILL CONT TO MONITOR.
[2020-03-19 06:08] LABS: HEMATOCRIT 30.5 % (42.0-52.0); HEMOGLOBIN 9.8 gm/dL (14.0-18.0); MCV 87.5 fL (80.0-100.0); RBC 3.49 mil/uL (4.50-6.00); RDW 19.9 % (10.5-14.5)
[2020-03-19 06:12] LABS: ALBUMIN 2.3 g/dL (3.4-5.0); CALCIUM 6.5 mg/dL (8.5-10.1); CREATININE 10.6 mg/dL (0.7-1.3); PHOSPHORUS 12.4 mg/dL (2.5-4.9); POTASSIUM 5.2 mmol/L (3.5-5.1)
[2020-03-19 08:00] VITALS: BP 69/44
[2020-03-19 10:38] VITALS: BP 68/36
[2020-03-19 14:32] VITALS: BP 74/45
[2020-03-19 15:57] VITALS: BP 69/35
--- NOTE | 2020-03-19 16:08 | HC ---
[facility] [place] [address] CONSULTATION Name: FAOROQ BLOOM Room #: 215-P ADM IN M.R.#: [id number] Admission: 03/14/20 Attend Phys: Kenny Pham MD Discharge: Date of : 42 Report #: [id number] THIS REPORT FOR: cc: [facility] - Family physician unknown [facility] - Family physician unknown Latrell Edmond MD ~ CC: [facility] unknown Kenny Pham DATE OF SERVICE: 03/17/2020 WOUND CARE CONSULTATION PERSONAL PHYSICIAN: Non-staff. CHIEF COMPLAINT: Bilateral lower extremity venous leg ulcers with cellulitis. HISTORY OF PRESENT ILLNESS: This is a 79-year-old white male who was admitted through the Emergency Department for bilateral lower extremity cellulitis and acute on chronic kidney failure. The patient himself is an extremely poor historian. There is no family with the patient at this time. According to old records, the patient supposedly most recently was on hospice; however, approximately 3 days prior to his admission, he was having increasing pain, discomfort, swelling and redness of his legs which prompted him to go to the Emergency Department and seek care. The patient at this point in time now wants full care. The patient states that he has been getting what appears to be lymphedema wraps to at least his left leg by the hospice nurses. The patient denies any other associated wounds except on his legs. PAST MEDICAL HISTORY: Per old records, significant for COPD with oxygen requirement; atrial fibrillation, on chronic anticoagulation; history of cardiomyopathy; congestive heart failure; venous insufficiency with associated secondary lymphedema; morbid obesity. CURRENT MEDICATIONS: Multiple, I reviewed the medication list. DRUG ALLERGIES: None. SOCIAL HISTORY: The patient has a history of smoking. Does not have any alcohol use. FAMILY HISTORY AND REVIEW OF SYSTEMS: Unobtainable because of the patient's dementia and confusion. PHYSICAL EXAMINATION: VITAL SIGNS: Temperature 37.1, pulse 100, respirations 24, BP 155/126. [facility] [address] [place] [address] CONSULTATION Name: FAROOQ BLOOM Room #: 215-P [facility] IN [facility]#: [id number] Admission: 03/14/20 Attend Phys: Kenny Pham MD Discharge: Date of : 42 Report #: [id number] GENERAL: This is an alert and oriented x 1 to person, but not place or time, morbidly obese white male. HEENT: Normocephalic, atraumatic. Mucous membranes are somewhat dry. Pupils are round. Sclerae white. NECK: Supple. Small amount of JVD. LUNGS: Slightly diminished breath sounds heard throughout. HEART: Irregularly irregular. ABDOMEN: Obese, soft, nontender. EXTREMITIES: Evaluation of sacrococcygeal region reveals excoriation without signs of open ulcerations. Evaluation of bilateral lower extremities reveals 3 to 4+ edema with bullous lesions noted on the right lower extremity and multiple superficial venous leg ulcers. There is increased erythema, warmth and tenderness to the right leg greater than left leg. Left leg actually had a lymphedema wrap in place, which was removed. There are no bullous lesions noted on the left lower extremity. Bilateral heels are intact. Distal pulses are 1+. NEUROLOGIC: Cranial nerves 2-12 grossly intact. Motor and sensory grossly intact. LABORATORY DATA: White count 12.8, hemoglobin 9.5. BUN 147, creatinine 8.3, albumin 2.4. IMPRESSION: 1. Bilateral lower extremity cellulitis, right greater than left with bullous lesions noted on the right lower extremity. 2. Chronic venous insufficiency with secondary lymphedema, bilateral lower extremities. 3. Morbid obesity. 4. Acute on chronic renal failure with creatinine 8.3. 5. Protein-calorie malnutrition -- severe with albumin of 2.3. PLAN: At this time, we will use AmLactin to bilateral lower extremities, wrap these with Xeroform, ABD, Kerlix and Bradley. We will encourage him to elevate his legs as much as possible. We will start the patient on low air loss mattress, given significant immobility have him turned every 2 hours. At this time, the patient is ____ trying to attempt to contact the family to evaluate how aggressive the treatment is warranted to be continued and whether the patient needs to be considered for dialysis. We will maximize the patient's protein supplementation as per renal diet for healing. Continue IV antibiotics. Continue all other current medications at this time. <ELECTRONICALLY SIGNED> By: Latrell Edmond MD 03/19/20 1608 [id number] 17 Latrell Edmond MD /nt
--- NOTE | 2020-03-19 16:26 | NUR ---
Patient with worsening decline today. Dr Fermin sp with POA regarding hospice. he is agreeable. he prefers referral to hospice house. Faxed referral to [facility] POA wishes. No POA paperwork on file. Called [facility]. No Poa paperwork. Sp with POA and alerted need paperwork or cannot consent for hospice. Sp with [facility] who had copy and faxed. Updated RN. ad compositor did peer to peer eval with RN. Determined paitent cont with rapid decline. Updated phys who reports to plan no transfer updated Steve SUAREZ. He is attempting to locate his home.
--- NOTE | 2020-03-19 16:43 | NUR ---
ASSESSMENT DOCUMENTED. HYPOTENSIVE. TACHYCARDIC. TACHYPNIC. PT PLACED ON COMFORT CARE THIS AM. MEDS ADMINISTERED PER EMAR/COMFORT CARE ORDERS. PT IN BED WITH CALL LIGHT IN REACH. WILL CONTINUE TO MONITOR.
--- NOTE | 2020-03-19 20:47 | NUR ---
PASSED PRONOUNCED AT 1900. IT WAS AN EXPECTED . DPOA NOTIFIED, WILL LOOK FOR HOME AND REPORT BACK TOMORROW.
== END 2020-03-19 19:00 | DRG 871 ==
LOC: 2N 14:42 → 4S 03-19 18:36
PROVIDERS: Hospitalist; Internal Medicine Nephrology; ADMIT Internal Medicine; ATTEND Internal Medicine
DX: A41.9 Sepsis, unspecified organism (principal); G93.41 Metabolic encephalopathy; N17.0 Acute kidney failure with tubular necrosis; E43 Unspecified severe protein-calorie malnutrition; N18.6 End stage renal disease; Z68.43 Body mass index [BMI] 50.0-59.9, adult; I48.20 Chronic atrial fibrillation, unspecified; L03.116 Cellulitis of left lower limb; L03.115 Cellulitis of right lower limb; I42.9 Cardiomyopathy, unspecified; L97.929 Non-pressure chronic ulcer of unspecified part of left lower leg with unspecified severity; L97.919 Non-pressure chronic ulcer of unspecified part of right lower leg with unspecified severity; I89.0 Lymphedema, not elsewhere classified; Z60.2 Problems related to living alone; J44.9 Chronic obstructive pulmonary disease, unspecified; I25.10 Atherosclerotic heart disease of native coronary artery without angina pectoris; E66.01 Morbid (severe) obesity due to excess calories; E87.5 Hyperkalemia; I95.9 Hypotension, unspecified; I87.8 Other specified disorders of veins; Z51.5 Encounter for palliative care; L08.89 Other specified local infections of the skin and subcutaneous tissue; I50.9 Heart failure, unspecified; E03.9 Hypothyroidism, unspecified; D63.1 Anemia in chronic kidney disease; I87.2 Venous insufficiency (chronic) (peripheral); Z87.891 Personal history of nicotine dependence; I25.2 Old myocardial infarction; Z90.49 Acquired absence of other specified parts of digestive tract; Z95.1 Presence of aortocoronary bypass graft
CPT/HCPCS: 10081